=== PATIENT | female | born 1940 | race Caucasian/White ===

== ENCOUNTER → 2017-01-23 | Outpatient (CLI) | payer MEDICARE ==
[~2017-01-23] MED LIST: ASPI-496 PO; CHOL10002 PO; ESTR0.5T PO; HYDR25TA6 PO; LOSA100T6 PO; MEDR2.5T PO; MULT-717 PO; PANT40TA3 PO; POLY1DRO EACHEYE; SIMV40TA3 PO; TIMO5DRO5 RIGHTEYE
== END | disposition home or self-care (01) ==
LOC: CFH 11:07
PROVIDERS: ATTEND Specialist
DX: Z12.31 Encounter for screening mammogram for malignant neoplasm of breast (principal)
CPT/HCPCS: 77063; G0202

== ENCOUNTER → 2017-09-03 | Outpatient (CLI) | payer MEDICARE | END | disposition home or self-care (01) | LOC: CFH 12:51 | PROVIDERS: ATTEND Specialist | DX: N83.202 Unspecified ovarian cyst, left side (principal); N83.201 Unspecified ovarian cyst, right side | CPT/HCPCS: 76830 ==

== ENCOUNTER → 2017-09-23 | Outpatient (CLI) | payer MEDICARE | LOC: CARD 14:02 | PROVIDERS: ATTEND Family Medicine | DX: R05 Cough (principal) | CPT/HCPCS: 94010; 94060 ==

== ENCOUNTER → 2018-01-26 | Outpatient (CLI) | payer MEDICARE | LOC: CFH 09:53 | PROVIDERS: ATTEND Orthopaedic Surgery | DX: M25.562 Pain in left knee (principal) | CPT/HCPCS: 73565 ==

== ENCOUNTER → 2018-01-28 | Outpatient (CLI) | payer MEDICARE | END | disposition home or self-care (01) | LOC: CFH 09:50 | PROVIDERS: ATTEND Specialist | DX: Z12.31 Encounter for screening mammogram for malignant neoplasm of breast (principal) | CPT/HCPCS: 77063; 77067 ==

== ENCOUNTER → 2018-04-13 | Outpatient (CLI) | payer MEDICARE | END | disposition home or self-care (01) | LOC: RAD 12:22 | PROVIDERS: ATTEND Family Medicine | DX: I65.23 Occlusion and stenosis of bilateral carotid arteries (principal); M41.86 Other forms of scoliosis, lumbar region; M47.896 Other spondylosis, lumbar region; M48.061 Spinal stenosis, lumbar region without neurogenic claudication | CPT/HCPCS: 72148; 93880 ==

== ENCOUNTER → 2019-02-09 | Outpatient (CLI) | payer MEDICARE ==
[~2019-02-09] MED LIST changes: +LOSA100T14 PO; -LOSA100T6 PO
== END | disposition home or self-care (01) ==
LOC: CFH 07:53
PROVIDERS: ATTEND Family Medicine
DX: N28.1 Cyst of kidney, acquired (principal)
CPT/HCPCS: 76700

== ENCOUNTER → 2019-03-05 | Outpatient (CLI) | payer MEDICARE | END | disposition home or self-care (01) | LOC: RAD 08:58 | PROVIDERS: ATTEND Internal Medicine | DX: K44.9 Diaphragmatic hernia without obstruction or gangrene (principal) | CPT/HCPCS: 74220 ==

== ENCOUNTER → 2019-04-02 | Outpatient (CLI) | payer MEDICARE | END | disposition home or self-care (01) | LOC: CFH 11:00 | PROVIDERS: ATTEND Specialist | DX: Z12.31 Encounter for screening mammogram for malignant neoplasm of breast (principal) | CPT/HCPCS: 77063; 77067 ==

== ENCOUNTER 2019-05-06 08:02 | Outpatient (CLI) | payer MEDICARE | END 2019-05-06 23:59 | disposition home or self-care (01) | LOC: CFH 08:02 | PROVIDERS: ATTEND Specialist | DX: N83.202 Unspecified ovarian cyst, left side (principal); N83.201 Unspecified ovarian cyst, right side; Z78.0 Asymptomatic menopausal state | CPT/HCPCS: 76830 ==

== ENCOUNTER → 2019-07-26 | Outpatient (CLI) | payer MEDICARE | END | disposition home or self-care (01) | LOC: CFH 13:16 | PROVIDERS: ATTEND Family Medicine | DX: M85.88 Other specified disorders of bone density and structure, other site (principal); N95.1 Menopausal and female climacteric states | CPT/HCPCS: 77080 ==

== ENCOUNTER → 2019-08-13 | Outpatient (CLI) | payer MEDICARE | END | disposition home or self-care (01) | LOC: CFH 08:45 | PROVIDERS: ATTEND Internal Medicine Cardiovascular Disease | DX: R91.1 Solitary pulmonary nodule (principal); R06.02 Shortness of breath; I10 Essential (primary) hypertension; Z82.49 Family history of ischemic heart disease and other diseases of the circulatory system | CPT/HCPCS: 75571 ==

== ENCOUNTER 2019-09-21 14:01 | Observation (INO) | payer MEDICARE ==
[~2019-09-21] VITALS: Ht 175.3 cm; Wt 83.1 kg
[2019-09-21 14:55] LABS: BASOPHILS # (AUTO) 0.04 x10^3/uL (0-0.1); BASOPHILS % (AUTO) 1 % (0-1); EOSINOPHILS # (AUTO) 0.32 x10^3/uL (0-0.4); EOSINOPHILS % (AUTO) 5 % (1-7); LYMPHOCYTES # (AUTO) 1.46 x10^3/uL (1-3.4); LYMPHOCYTES % (AUTO) 22 % (22-44); MD NO; MEAN CORPUSCULAR HEMOGLOBIN 27.8 pg (27.0-34.8); MEAN CORPUSCULAR HGB CONC 33.2 g/dL (32.4-35.8); MEAN CORPUSCULAR VOLUME 83.6 fL (80-100); MEAN PLATELET VOLUME 7.2 fL (7.4-10.4); MONOCYTES # (AUTO) 0.77 x10^3/uL (0.2-0.8); MONOCYTES % (AUTO) 12 % (2-9); NEUTROPHILS # (AUTO) 3.96 x10^3/uL (1.8-6.8); NEUTROPHILS % (AUTO) 61 % (42-75); PLATELET COUNT 254 x10^3/uL (130-400); RED BLOOD COUNT 4.54 x10^6/uL (3.82-5.3); RED CELL DISTRIBUTION WIDTH 13.4 % (9.6-15.2)
[2019-09-21] MEDS ORDERED: MECLIZINE CHEWABLE 25 MG TAB PO ONE (15:00)
[2019-09-21 15:08] LABS: ALANINE AMINOTRANSFERASE 25 U/L (12-78); ALBUMIN 3.6 g/dL (3.4-5.0); ANION GAP 5 mmol/L (5-15); CALCIUM 9.3 mg/dL (8.5-10.1); CHLORIDE 111 mmol/L (98-107); CREATININE 1.07 mg/dL (0.55-1.02)
--- NOTE | 2019-09-21 15:10 | NUR ---
MED NOT AVAILABLE IN [employer]. MED REQ TO PHARMACY
[2019-09-21 15:12] LABS: ALKALINE PHOSPHATASE 42 U/L (45-117); TROPONIN I < 0.015 ng/mL (0.000-0.045)
--- NOTE | 2019-09-21 15:22 | NUR ---
BREAK NOTE: PT. WAS MEDICATED ORDERED. CP MONITOR IN PLACE. PT. HAS THE SIDERAILS UP X 2 AND THE CALL LIGHT IS IN PLACE. PT. WAS GIVEN A BLANKET FOR WARMTH.
[2019-09-21] MEDS ORDERED: NITROGLYCERIN 0.4 MG/SPRAY SL PRN (16:30)
[2019-09-21] MEDS ORDERED: NITROGLYCERIN 0.4 MG BOTTLE (25 TABS) SL PRN (16:30)
[2019-09-21] MEDS ORDERED: hydrALAzine 20 MG/ML, 1ML IV PRN (16:30)
[2019-09-21] MEDS ORDERED: morphine SULFATE 10 MG/ML, 1ML IV PRN (16:30)
[2019-09-21] MEDS ORDERED: SODIUM CHLORIDE 0.9%, 500ML IVBOLUS ONE (16:30)
--- NOTE | 2019-09-21 16:46 | NUR ---
REPORT FROM MARY CELAYA TO ASSUME CARE AT THIS TIME.
--- NOTE | 2019-09-21 16:51 | NUR ---
PT RESTING IN ROOM WITH FAMILY AT BS. VSS. PT STATES NO S/S AT THIS TIME. IVFB STARTED. AWAITING ROOM. ASSIGNMENT.
--- NOTE | 2019-09-21 17:17 | NUR ---
REPORT TO BELIA FLEMING. PT READY FOR TRANSPORT.
[2019-09-21 17:42] VITALS: BP 168/77
[2019-09-21 20:25] VITALS: BP 112/61
[2019-09-21 20:28] VITALS: BP 134/73
[2019-09-21 20:29] VITALS: BP 148/75
[2019-09-21] MEDS ORDERED: SIMVASTATIN 40 MG TABLET PO SCH (21:00)
[2019-09-21] MEDS: SODIUM CHLORIDE FLUSH 10ML SYR IVF SCH (22:02)
[2019-09-21 22:25] LABS: TROPONIN I < 0.015 ng/mL (0.000-0.045)
[2019-09-21 22:38] VITALS: BP 131/76
[2019-09-22] VITALS (9 sets, daily range): BP systolic 129–167; BP diastolic 68–84
[2019-09-22] MEDS: ACETAMINOPHEN 325 MG TABLET PO PRN ×2 (01:22→09:18)
[2019-09-22 04:47] LABS: ANION GAP 5 mmol/L (5-15); CHLORIDE 113 mmol/L (98-107); CREATININE 1.08 mg/dL (0.55-1.02)
[2019-09-22 04:50] LABS: TROPONIN I < 0.015 ng/mL (0.000-0.045)
[2019-09-22] MEDS ORDERED: ASPIRIN 325 MG TABLET EC PO SCH (06:00)
[2019-09-22] MEDS ORDERED: PANTOPROZOLE 40MG TABLET PO SCH (09:00)
[2019-09-22] MEDS ORDERED: LOSARTAN 25MG TABLET PO SCH (09:00)
[2019-09-22] MEDS ORDERED: HYDROCHLOROTHIAZIDE 25 MG TABLET PO SCH (09:00)
[2019-09-22] MEDS ORDERED: TIMOLOL OPHTH 0.5%, 5ML RIGHTEYE SCH (09:00)
[2019-09-22] MEDS: SODIUM CHLORIDE FLUSH 10ML SYR IVF SCH (09:23)
[2019-09-22] MEDS ORDERED: HYDR-3342 PO (10:35)
== END 2019-09-22 15:15 | disposition home or self-care (01) ==
LOC: ED 15:57 → EDIP 16:22 → 4EST 17:35 → DCLOUNGE 09-22 15:07
PROVIDERS: ADMIT Hospitalist; ATTEND Internal Medicine
DX: R55 Syncope and collapse (principal); I12.9 Hypertensive chronic kidney disease with stage 1 through stage 4 chronic kidney disease, or unspecified chronic kidney disease; N18.3 Chronic kidney disease, stage 3 (moderate); K21.9 Gastro-esophageal reflux disease without esophagitis; F41.9 Anxiety disorder, unspecified; E78.5 Hyperlipidemia, unspecified; F13.90 Sedative, hypnotic, or anxiolytic use, unspecified, uncomplicated
CPT/HCPCS: 36415; 71045; 80048; 80053; 83880; 84484; 85025; 93005; 96360; 99284; G0378; J7040

== ENCOUNTER → 2020-05-25 | Outpatient (CLI) | payer MEDICARE ==
[~2020-05-25] MED LIST changes: +CEFD300C37 PO; +HYDR-3342 PO; +SIMV40TA20 PO; -SIMV40TA3 PO; +SINCALIDE (KINEVAC) 5 MCG ONE
== END | disposition home or self-care (01) ==
LOC: RAD 10:44
PROVIDERS: ATTEND Family Medicine
DX: R10.10 Upper abdominal pain, unspecified (principal); R11.0 Nausea
CPT/HCPCS: 78226; A9537; J2805